=== PATIENT | male | born 1970 | race Caucasian/White ===

== ENCOUNTER 2022-06-07 14:41 | Outpatient (CLI) | payer BC, SELFPAY ==
[2022-06-07 21:23] LABS: Albumin* 4.4 g/dL (3.3-5.0)
[2022-06-07 21:24] LABS: Chloride* 105 mmol/L (96-114); Potassium* 4.7 mmol/L (3.6-5.1); Sodium* 141 mmol/L (135-149)
[2022-06-07 21:26] LABS: Aspartate Amino Transferase* 29 U/L (12-35); Bilirubin Total* 0.5 mg/dL (0.1-1.5); Carbon Dioxide* 29 mmol/L (20-32); Estimated Glomerular Filt Rate 91 ml/min; Total Protein* 7.6 g/dL (6.0-8.3)
[2022-06-07 21:27] LABS: Alanine Aminotransferase* 26 U/L (4-50); Alkaline Phosphatase* 96 U/L (40-150); Blood Urea Nitrogen* 19 mg/dL (7-30); Calcium* 9.3 mg/dL (8.4-10.6); Glucose* 105 mg/dL (60-115)
[2022-06-07 21:56] LABS: PSA Screen* 0.95 ng/mL (0.10-4.00)
[2022-06-07 22:13] LABS: Vitamin B12* 431 pg/mL (243-894)
== END 2022-06-07 14:42 | disposition home or self-care (01) ==
PROVIDERS: PCP Family Medicine; Visit Provider Family Medicine
DX: Z00.00 Encounter for general adult medical examination without abnormal findings (principal); I10 Essential (primary) hypertension; K21.9 Gastro-esophageal reflux disease without esophagitis
CPT/HCPCS: 80053; 82607; 84153

== ENCOUNTER 2022-06-14 13:02 | Outpatient (CLI) | payer BC, SELFPAY ==
--- NOTE | 2022-06-14 14:00 | CRLHL7_ITS ---
For Patients: As a result of the Century Cures Act, medical imaging exams and procedure reports are released immediately into your electronic medical record. You may view this report before your referring provider. If you have questions, please contact your health care provider. INDICATION: Essential hypertension TECHNIQUE: Ultrasound abdomen limited. Sonographic images of the right upper quadrant were obtained using walters-scale and color Doppler images. COMPARISON: None FINDINGS: Liver: Normal in size and echotexture. No masses. No intrahepatic biliary dilatation. Gallbladder: Cholelithiasis normal wall thickness. No pericholecystic fluid. Common bile duct: 7 mm. Pancreas: Not well visualized due to adjacent bowel gas. Right kidney: 0.4 cm. Normal echotexture and cortex. No masses, stones, or hydronephrosis. Vasculature: Proximal abdominal aorta and IVC are normal. IMPRESSION: Cholelithiasis in an otherwise normal appearing gallbladder. Common bile duct at the upper limits of normal. Dictated by Hakeem Garber MD @ 06/14/2022 2:40:27 PM (Electronically Signed)
== END 2022-06-14 13:03 | disposition home or self-care (01) ==
LOC: US 13:04
PROVIDERS: PCP Family Medicine; Visit Provider Family Medicine
DX: I10 Essential (primary) hypertension (principal); K80.20 Calculus of gallbladder without cholecystitis without obstruction
CPT/HCPCS: 76705

== ENCOUNTER 2022-08-06 10:36 | Outpatient (CLI) | payer BC, SELFPAY ==
[2022-08-06 22:16] LABS: Albumin* 4.4 g/dL (3.3-5.0); Chloride* 103 mmol/L (96-114)
[2022-08-06 22:17] LABS: Potassium* 4.4 mmol/L (3.6-5.1); Sodium* 140 mmol/L (135-149)
[2022-08-06 22:19] LABS: Aspartate Amino Transferase* 30 U/L (12-35); Bilirubin Total* 0.4 mg/dL (0.1-1.5); Carbon Dioxide* 28 mmol/L (20-32); Cholesterol* 182 mg/dL (90-199); Estimated Glomerular Filt Rate 91 ml/min; Total Protein* 7.3 g/dL (6.0-8.3)
[2022-08-06 22:20] LABS: Alanine Aminotransferase* 31 U/L (4-50); Alkaline Phosphatase* 97 U/L (40-150); Blood Urea Nitrogen* 19 mg/dL (7-30); Calcium* 9.1 mg/dL (8.4-10.6); Glucose* 106 mg/dL (60-115); HDL Cholesterol* 54 mg/dL (>=40); LDL Cholesterol Calculated 107 mg/dL (<100); Triglycerides* 107 mg/dL (40-149)
== END 2022-08-06 10:37 | disposition home or self-care (01) ==
PROVIDERS: PCP Family Medicine; Visit Provider Family Medicine
DX: I10 Essential (primary) hypertension (principal); Z76.89 Persons encountering health services in other specified circumstances
CPT/HCPCS: 80053; 80061

== ENCOUNTER 2024-07-02 13:50 | Outpatient (CLI) | payer BC, SELFPAY | END 2024-07-02 13:51 | disposition home or self-care (01) | PROVIDERS: PCP Family Medicine; Visit Provider Family Medicine | DX: I10 Essential (primary) hypertension (principal); Z11.59 Encounter for screening for other viral diseases; Z12.5 Encounter for screening for malignant neoplasm of prostate; Z13.220 Encounter for screening for lipoid disorders | CPT/HCPCS: 80061; 82043; 82570; 86803; G0103 ==

== ENCOUNTER 2024-07-15 09:45 | Outpatient (RCR) | payer BC, SELFPAY | END 2024-10-20 07:19 | disposition home or self-care (01) | PROVIDERS: PCP Family Medicine; Visit Provider Family Medicine | DX: M54.2 Cervicalgia (principal); Z51.89 Encounter for other specified aftercare | CPT/HCPCS: 97035; 97140; 97161 ==

== ENCOUNTER 2024-07-16 18:04 | Outpatient (CLI) | payer BC, SELFPAY ==
--- NOTE | 2024-07-16 18:15 | CRLHL7_ITS ---
For Patients: As a result of the Century Cures Act, medical imaging exams and procedure reports are released immediately into your electronic medical record. You may view this report before your referring provider. If you have questions, please contact your health care provider. INDICATION: Right leg redness and swelling.. TECHNIQUE: Ultrasound venous duplex lower right extremity. Compression venous exam was performed using walters-scale, color Doppler, and spectral Doppler analysis. COMPARISON: None. FINDINGS: Deep veins: Sonographic imaging demonstrates the right common femoral, deep femoral, superficial femoral, popliteal, posterior tibial and the contralateral left common femoral veins to be fully compressible with normal color Doppler blood flow. Superficial veins: Lack of compressibility in the greater saphenous vein from the proximal thigh to the distal calf. Mild subcutaneous edema is noted. IMPRESSION: No DVT in the right lower extremity. Superficial thrombus noted in the greater saphenous vein from the proximal thigh to the distal calf. Dictated by Adelita Adams MD @ 07/16/2024 8:00:14 PM (Electronically Signed)
== END 2024-07-16 18:05 | disposition home or self-care (01) ==
LOC: US 18:05
PROVIDERS: PCP Family Medicine; Visit Provider Emergency Medicine
DX: M79.604 Pain in right leg (principal); I82.811 Embolism and thrombosis of superficial veins of right lower extremity; R22.41 Localized swelling, mass and lump, right lower limb
CPT/HCPCS: 93971

== ENCOUNTER 2024-07-30 10:13 | Outpatient (CLI) | payer BC, SELFPAY | END 2024-07-30 10:14 | disposition home or self-care (01) | PROVIDERS: PCP Family Medicine; Visit Provider Family Medicine | DX: I10 Essential (primary) hypertension (principal); I26.99 Other pulmonary embolism without acute cor pulmonale | CPT/HCPCS: 80048; 81240; 81241; 83090; 85300; 85302; 85303; 85306; 85384; 86146; 86147 ==

== ENCOUNTER 2024-09-02 09:56 | Outpatient (CLI) | payer BC, SELFPAY | END 2024-09-02 09:57 | disposition home or self-care (01) | LOC: NFLDREF 09-05 04:01 | PROVIDERS: PCP Family Medicine; Referring Provider Family Medicine; Visit Provider Clinical Nurse Specialist | DX: I26.99 Other pulmonary embolism without acute cor pulmonale (principal) | CPT/HCPCS: 86147 ==

== ENCOUNTER 2024-09-24 15:57 | Outpatient (CLI) | payer BC, SELFPAY | END 2024-09-24 15:58 | disposition home or self-care (01) | PROVIDERS: PCP Family Medicine; Visit Provider Family Medicine | DX: K76.0 Fatty (change of) liver, not elsewhere classified (principal); I10 Essential (primary) hypertension | CPT/HCPCS: 80048; 80076; 86147 ==

== ENCOUNTER 2024-10-05 10:13 | Outpatient (CLI) | payer BC, SELFPAY ==
--- NOTE | 2024-10-05 10:15 | CRLHL7_ITS ---
For Patients: As a result of the Century Cures Act, medical imaging exams and procedure reports are released immediately into your electronic medical record. You may view this report before your referring provider. If you have questions, please contact your health care provider. INDICATION: Phlebitis COMPARISON: 07/16/2024 TECHNIQUE: A compression venous ultrasound exam was performed of both lower extremities using walters scale imaging, color Doppler and spectral Doppler analysis. FINDINGS: Sonographic imaging of the lower extremities demonstrates normal compressibility and color Doppler venous blood flow within the common femoral and deep femoral veins. Within the thighs the femoral veins are patent and compressible. At a lower level the popliteal and posterior tibial veins also show normal compressibility and color Doppler venous blood flow. 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 Residual partial thrombus formation within the right greater saphenous vein. IMPRESSION: Partial resolution of superficial clot throughout the greater saphenous vein on the right. No DVT. Dictated by Hakeem De La Torre MD @ 10/05/2024 11:19:36 AM (Electronically Signed)
== END 2024-10-05 10:14 | disposition home or self-care (01) ==
LOC: US 10:13
PROVIDERS: PCP Family Medicine; Referring Provider Clinical Nurse Specialist; Visit Provider Family Medicine
DX: I80.9 Phlebitis and thrombophlebitis of unspecified site (principal); I26.99 Other pulmonary embolism without acute cor pulmonale; I10 Essential (primary) hypertension; K76.0 Fatty (change of) liver, not elsewhere classified
CPT/HCPCS: 93970

== ENCOUNTER 2024-11-19 15:58 | Outpatient (CLI) | payer BC, SELFPAY | END 2024-11-19 15:59 | disposition home or self-care (01) | LOC: LKVREF 16:01 | PROVIDERS: PCP Family Medicine; Visit Provider Family Medicine | DX: Z12.5 Encounter for screening for malignant neoplasm of prostate (principal) | CPT/HCPCS: G0103 ==

== ENCOUNTER 2024-12-01 10:36 | Outpatient (CLI) | payer BC, SELFPAY ==
--- NOTE | 2024-12-01 11:00 | CRLHL7_ITS ---
For Patients: As a result of the Cures Act, medical imaging exams and procedure reports are released immediately into your electronic medical record. You may view this report before your referring provider. If you have questions, please contact your health care provider. Indication: H/O PE per oncology, slow transit constipation Technique: CT Chest/Abd/Pelvis W/ 150CC [id number] Please note that all CT scans at this facility use dose modulation, iterative reconstruction, and/or weight-based dosing when appropriate to reduce radiation dose to as low as reasonably achievable. Comparison: 07/18/2024 CT chest Findings: In the chest, no pulmonary embolism is present. No adenopathy. No pleural or pericardial effusion. Visualized thyroid normal. Incidental pericardial recess perifissural nodule on the right measures 3 millimeters, unchanged, . Improved aeration within the lungs compared to the prior study bridging osteophyte formation. No fracture. In the abdomen/pelvis, no intrahepatic mass is present. Gallbladder is normal. No biliary obstruction or calcified gallstones. Normal pancreas. Spleen is normal. Normal adrenal glands. Bladder is normal. Normal ureters. Normal kidneys with incidental sub 5 millimeter cyst right kidney. No hiatal hernia. No enlarged lymph nodes. Colonic diverticulosis. No diverticulitis. No bowel obstruction, free air or free fluid. Normal appendix. Discogenic spurring. No fracture. Incidental subcortical cystic changes within superolateral femoral head bilaterally with associated degenerative joint disease. Impression: Resolution of previously noted pulmonary embolism. Colonic diverticulosis. No diverticulitis. No excess colonic stool. Please note that all CT scans at this facility use dose modulation, iterative reconstruction, and/or weight-based dosing when appropriate to reduce radiation dose to as low as reasonably achievable. Dictated by Hakeem De La Torre MD @ 12/01/2024 12:33:24 PM (Electronically Signed)
[2024-12-01 11:05] LABS: Creatinine* 1.1 mg/dL (0.5-1.5); Estimated Glomerular Filt Rate 80 ml/min
== END 2024-12-01 10:37 | disposition home or self-care (01) ==
LOC: CT 10:37
PROVIDERS: PCP Family Medicine; Visit Provider Family Medicine
DX: K59.01 Slow transit constipation (principal); K57.90 Diverticulosis of intestine, part unspecified, without perforation or abscess without bleeding; I26.99 Other pulmonary embolism without acute cor pulmonale; R19.00 Intra-abdominal and pelvic swelling, mass and lump, unspecified site
CPT/HCPCS: 36415; 71260; 74177; 82565; Q9967

== ENCOUNTER 2025-01-14 10:30 | Outpatient (RCR) | payer BC, SELFPAY ==
--- NOTE | 2025-01-14 08:58 | ONC.NURNOTE ---
Nuclear Equipment Sales Engineer received a call from [facility], he asked to cancel his appointment and did not want to reschedule. Appointment was cancelled.
== END 2025-03-09 23:59 | disposition home or self-care (01) ==
LOC: CCIC 10:30
PROVIDERS: PCP Family Medicine; Referring Provider Family Medicine; Visit Provider Internal Medicine Hematology & Oncology
DX: I80.01 Phlebitis and thrombophlebitis of superficial vessels of right lower extremity (principal); I26.99 Other pulmonary embolism without acute cor pulmonale
CPT/HCPCS: 99202; 99204; 99213; G0463

== ENCOUNTER 2025-01-19 11:18 | Outpatient (CLI) | payer BC, SELFPAY | END 2025-01-19 11:19 | disposition home or self-care (01) | PROVIDERS: PCP Family Medicine; Visit Provider Family Medicine | DX: I10 Essential (primary) hypertension (principal); I26.99 Other pulmonary embolism without acute cor pulmonale; I63.9 Cerebral infarction, unspecified; I67.9 Cerebrovascular disease, unspecified | CPT/HCPCS: 80053; 80061; 86147 ==

== ENCOUNTER 2025-01-29 09:02 | Outpatient (CLI) | payer BC, SELFPAY ==
--- NOTE | 2025-01-29 09:15 | CRLHL7_ITS ---
For Patients: As a result of the Century Cures Act, medical imaging exams and procedure reports are released immediately into your electronic medical record. You may view this report before your referring provider. If you have questions, please contact your health care provider. INDICATION: phlebitis and thrombophlebitis, aneurysmal dilatation of left popliteal vein COMPARISON: 10/05/2024 TECHNIQUE: A compression venous ultrasound exam was performed of both lower extremities using walters scale imaging, color Doppler and spectral Doppler analysis. FINDINGS: Dilated left popliteal vein again noted measuring up to 2.4 cm. Normal Doppler flow and compression of the left popliteal vein. Partial compressibility of the left calf greater saphenous vein. Chronic thrombus within the right greater saphenous vein extending from the mid thigh to the mid calf with partial compressibility. Remainder of the examination is unremarkable bilaterally. IMPRESSION: No evidence of deep vein thrombosis within either the left or right lower extremity. Chronic partial superficial clot within the left greater saphenous vein in the calf. Chronic partial superficial clot within the right greater saphenous vein in the mid thigh to the mid calf. Dictated by Hakeem De La Torre MD @ 01/29/2025 10:36:52 AM (Electronically Signed)
== END 2025-01-29 09:03 | disposition home or self-care (01) ==
LOC: US 09:02
PROVIDERS: PCP Family Medicine; Visit Provider Family Medicine
DX: I80.9 Phlebitis and thrombophlebitis of unspecified site (principal); I82.593 Chronic embolism and thrombosis of other specified deep vein of lower extremity, bilateral
CPT/HCPCS: 93970

== ENCOUNTER 2025-03-02 10:33 | Outpatient (CLI) | payer BC, SELFPAY | END 2025-03-02 10:34 | disposition home or self-care (01) | PROVIDERS: PCP Family Medicine; Visit Provider Family Medicine | DX: I10 Essential (primary) hypertension (principal); I63.9 Cerebral infarction, unspecified; Z13.21 Encounter for screening for nutritional disorder | CPT/HCPCS: 80048; 83735; 84630 ==

== ENCOUNTER 2025-05-11 11:02 | Outpatient (CLI) | payer BC, SELFPAY | END 2025-05-11 11:03 | disposition home or self-care (01) | LOC: NFLDREF 05-12 15:03 | PROVIDERS: PCP Family Medicine; Referring Provider Family Medicine; Visit Provider Family Medicine | DX: N40.0 Benign prostatic hyperplasia without lower urinary tract symptoms (principal); R53.83 Other fatigue; D64.9 Anemia, unspecified; N52.9 Male erectile dysfunction, unspecified | CPT/HCPCS: 84443 ==

== ENCOUNTER 2025-07-24 12:15 | Outpatient (CLI) | payer BC, SELFPAY | END 2025-07-24 12:16 | disposition home or self-care (01) | LOC: NFLDREF 07-25 15:57 | PROVIDERS: PCP Family Medicine; Referring Provider Family Medicine; Visit Provider Family Medicine | DX: K57.92 Diverticulitis of intestine, part unspecified, without perforation or abscess without bleeding (principal) | CPT/HCPCS: 87086 ==

== ENCOUNTER 2025-10-21 11:20 | Outpatient (CLI) | payer BC, SELFPAY ==
--- NOTE | 2025-10-21 13:05 | P.ANES_ITS ---
Anesthesia Charges Start Date/Time Anesthesia Start Date: 10/21/25 Anesthesia Start Time: 12:24 Stop Date/Time Anesthesia Stop Date: 10/21/25 Anesthesia Stop Time: 13:03 Coding CPT Codes CPT Codes: ANES LWR INTST NDSC NOS - [id number] ([id number]) P3 - PATIENT W/SEVERE SYS DISEASE, QK - PASSENGER FLAGMAN 2-4 CNCRNT ANES PROC, QX - APPLIANCE SERVICE REPRESENTATIVE SVC W/ MD MED DIRECTION
--- NOTE | 2025-10-21 13:05 | W.ANESCHARGE ---
Anesthesia Charges Start Date/Time Anesthesia Start Date: 10/21/25 Anesthesia Start Time: 12:24 Stop Date/Time Anesthesia Stop Date: 10/21/25 Anesthesia Stop Time: 13:03 Coding CPT Codes CPT Codes: ANES LWR INTST NDSC NOS - [id number] ([id number]) P3 - PATIENT W/SEVERE SYS DISEASE, QK - MANAGER MORTGAGE 2-4 CNCRNT ANES PROC, QX - TRIAGE CLINICIAN SVC W/ MD MED DIRECTION
--- NOTE | 2025-10-21 14:40 | P.ANES_ITS ---
Anesthesia Charges Start Date/Time Anesthesia Start Date: 10/21/25 Anesthesia Start Time: 12:24 Stop Date/Time Anesthesia Stop Date: 10/21/25 Anesthesia Stop Time: 13:03 Coding CPT Codes CPT Codes: ANES LWR INTST NDSC NOS - [id number] ([id number]) QK - ACUPRESSURE THERAPIST 2-4 CNCRNT ANES PROC, QX - TIP STITCHER SVC W/ MED DIRECTION, P3 - PATIENT W/SEVERE SYS DISEASE
--- NOTE | 2025-10-21 14:40 | W.ANESCHARGE ---
Anesthesia Charges Start Date/Time Anesthesia Start Date: 10/21/25 Anesthesia Start Time: 12:24 Stop Date/Time Anesthesia Stop Date: 10/21/25 Anesthesia Stop Time: 13:03 Coding CPT Codes CPT Codes: ANES LWR INTST NDSC NOS - [id number] ([id number]) QK - MODELER 2-4 CNCRNT ANES PROC, QX - MEDICAL OR SURGICAL INSTRUMENT MAKER SVC W/ MED DIRECTION, P3 - PATIENT W/SEVERE SYS DISEASE
== END 2025-10-21 11:21 | disposition home or self-care (01) ==
LOC: OP CLINIC 11:21
PROVIDERS: PCP Family Medicine; Visit Provider Surgery
DX: D12.1 Benign neoplasm of appendix (principal); D12.4 Benign neoplasm of descending colon; D12.7 Benign neoplasm of rectosigmoid junction; K57.30 Diverticulosis of large intestine without perforation or abscess without bleeding
CPT/HCPCS: 00811; 45385; J2704